=== PATIENT | female | born 1945 | race Caucasian/White ===

== ENCOUNTER → 2016-09-10 | Outpatient (CLI) | payer MEDICARE ==
[~2016-09-10] MED LIST: APIX5TAB PO; ASP81CT PO; CTRZ10T PO; DIGO125T PO; DILT240C54 PO; DULO30CA48 PO; FLECANIDE PO; HYDR-3720 PO; HYDR-3812 PO; LOSA100T7 PO; MAGN250T7 PO; MTP25TSR PO; MULT1CAP27 PO; PARO10TA21 PO; TRAM-42 PO; VIT1CAPS9 PO; WARF7.5T PO; WRF5T PO
--- NOTE | 2016-09-10 18:45 | ECHOCARDIOGRAPHY REPORT ---
DATE OF SERVICE: 09/10/2016 TWO-DIMENSIONAL ECHOCARDIOGRAM REPORT REFERRING PHYSICIAN: Katlyn Darby MD MEASUREMENT: LVID end-diastolic 5.0, IVS thickness 1.3, LVPW thickness 1.3, left atrial diameter 4.7, ejection fraction 60%. FINDINGS: 1. Technical quality is good. 2. The left ventricle is normal in size with mild to moderate left ventricular hypertrophy noted diffusely, more pronounced at the base of the septum giving the septum a sigmoid shape. Systolic function appeared to be normal, estimated ejection fraction 60%. Diastolic dysfunction is suggested by Doppler. 3. The left atrium is dilated. No clot or thrombus were seen within the left atrium. 4. The right atrium and right ventricle are dilated. No clot or thrombus were seen within the right side. 5. Mitral valve is normal in morphology with mild to moderate mitral regurgitation noted by color Doppler flow. No mitral valve prolapse. No mitral valve stenosis. 6. Aortic valve is trileaflet with normal opening and closing pattern. No significant aortic valve stenosis was noted. Moderate aortic regurgitation noted by color Doppler flow. 7. Tricuspid valve is normal in morphology with mild to moderate tricuspid regurgitation noted by color Doppler flow. Doppler across the tricuspid valve estimated pulmonary artery pressure of 39 plus right atrial pressure. 8. Pulmonic valve is functioning normally. 9. No pericardial effusion. CONCLUSION: 1. Mild to moderate left ventricular hypertrophy noted diffusely, more pronounced at the base of the septum giving the septum a sigmoid shape. Systolic function appeared to be normal, estimated ejection fraction 60%, diastolic dysfunction is suggested by Doppler. 2. Left atrial dilatation with dilated right heart chambers. 3. Pulmonary hypertension with estimated pulmonary artery pressure of 45 mmHg. 4. Mild to moderate mitral regurgitation, moderate aortic regurgitation, mild to moderate tricuspid regurgitation. Job ID: [id number] DocumentID: [id number] Dictated Date: 09/10/2016 12:29:40 Treatment Supervisor Date: 09/10/2016 13:06:17 Dictated By: DALJIT DOTY MD
== END ==
LOC: CARD 09:53
PROVIDERS: ATTEND Internal Medicine Cardiovascular Disease
DX: I48.91 Unspecified atrial fibrillation (principal); I10 Essential (primary) hypertension; E78.2 Mixed hyperlipidemia; G47.33 Obstructive sleep apnea (adult) (pediatric); I27.2 Other secondary pulmonary hypertension; I08.3 Combined rheumatic disorders of mitral, aortic and tricuspid valves
CPT/HCPCS: 93306

== ENCOUNTER → 2018-07-20 | Outpatient (CLI) | payer MEDICARE ==
[~2018-07-20] VITALS: Ht 165.1 cm; Wt 95.7 kg
[~2018-07-20] MED LIST changes: +ACHD5005 PO; -HYDR-3812 PO; +OCUVITE SOFTGE1 EACH PO; +REGADENOSON 0.4 MG/5 ML SYR (LEXISCAN) IV ONE; -VIT1CAPS9 PO
[2018-07-20] MEDS: CATHETER FLUSH 10 ML SYR IV PRN ×2 (08:06→09:36)
[2018-07-20 09:34] VITALS: BP 171/104
--- NOTE | 2018-07-20 15:17 | STRESS TEST ---
DATE OF SERVICE: 07/20/2018 LEXISCAN MYOVIEW STRESS TEST REPORT REFERRING PHYSICIAN: Dr. Katlyn Darby. Baseline heart rate is 75, baseline blood pressure 171/104, baseline EKG is atrial fibrillation with no ischemic changes. In summary, the patient was injected with 10.83 mCi of technetium-99 Myoview and the resting images were obtained. Then, the patient received 0.4 mg of Lexiscan, followed by 29.5 mCi of technetium-99 Myoview. Throughout the test, there were no EKG changes. The resting and stress images were reviewed and compared in the short axis, horizontal long axis, and vertical long axis views. Review of the images showed reversible ischemia involving the whole anterior wall and anterolateral wall. SSS is 16, SDS 12, TID value 1.08. On the gated images, the left ventricle appeared to be in normal size with normal contractility. Calculated ejection fraction 56%, gated images are unreliable due to underlying atrial fibrillation. IN CONCLUSION: 1. The patient tolerated Lexiscan well. 2. Reversible ischemia involving the whole anterior wall and anterolateral wall. 3. Normal left ventricular size, gated images are unreliable due to atrial fibrillation. 4. Calculated ejection fraction 56%. Job ID: [id number] DocumentID: [id number] Dictated Date: 07/20/2018 15:08:56 Psychosocial Rehabilitation Counselor Date: 07/20/2018 15:16:41 Dictated By: DALJIT DOTY MD
== END ==
LOC: CARD 07:37
PROVIDERS: ATTEND Physician Assistant
DX: I48.91 Unspecified atrial fibrillation (principal); I35.1 Nonrheumatic aortic (valve) insufficiency; I10 Essential (primary) hypertension; E78.2 Mixed hyperlipidemia
CPT/HCPCS: 78452; 93017

== ENCOUNTER 2018-08-10 07:59 | Day surgery (SDC) | payer MEDICARE ==
[2018-08-10] VITALS (10 sets, daily range): BP systolic 125–148; BP diastolic 70–96
[~2018-08-10] VITALS: Ht 165.1 cm; Wt 90.7 kg
[~2018-08-10 07:59] MED LIST changes: -REGADENOSON 0.4 MG/5 ML SYR (LEXISCAN) IV ONE
[2018-08-10] MEDS ORDERED: LIDOCAINE 1% INJ 20 ML 20 ML VIAL ONE (08:03)
[2018-08-10] MEDS ORDERED: NS IV 1000 ML 1,000 ML ONE (08:03)
[2018-08-10] MEDS ORDERED: HEParin (CATH LAB) 2,000 ML IV ONE (08:03)
[2018-08-10] MEDS ORDERED: NS IV 1000 ML 1,000 ML IV SCH ×2 (08:10→10:52)
[2018-08-10 08:38] LABS: HEMOGLOBIN 14.6 G/DL (11.5-16.0); MEAN PLATELET VOLUME 11.8 FL (7.4-10.4); RED CELL DISTRIBUTION WIDTH 14.5 % (10.0-14.5); WHITE BLOOD COUNT 6.8 10^3/uL (4.3-11.0)
[2018-08-10 08:49] LABS: PROTHROMBIN TIME PATIENT 13.8 SEC (12.2-14.7)
--- NOTE | 2018-08-10 08:49 | Diagnostic Imaging Report ---
INDICATION: Coronary artery disease. COMPARISON: 12/11/2011. FINDINGS: A single frontal radiographic view of the chest was obtained and demonstrates persistent moderate to marked cardiomegaly. The pulmonary vasculature, however, is within normal limits. The lungs are clear. There is no focal consolidation, large effusion, or pneumothorax. The bony structures show no gross acute abnormalities. IMPRESSION: Stable cardiomegaly with no evidence of failure or focal infiltrate. Dictated by: Dictated on workstation # [id number]
[2018-08-10 08:57] LABS: ALANINE AMINOTRANSFERASE 35 U/L (0-55); ALBUMIN 4.1 GM/DL (3.2-4.5); ALKALINE PHOSPHATASE 93 U/L (40-136); BILIRUBIN,TOTAL 0.8 MG/DL (0.1-1.0); BUN/CREATININE RATIO 18; CALCIUM 9.8 MG/DL (8.5-10.1); CARBON DIOXIDE 21 MMOL/L (21-32); CHLORIDE 108 MMOL/L (98-107); CREATININE SERUM 0.77 MG/DL (0.60-1.30); GFR ESTIMATED > 60; GLUCOSE 114 MG/DL (70-105); POTASSIUM 5.1 MMOL/L (3.6-5.0); SODIUM 142 MMOL/L (135-145); TOTAL PROTEIN 8.3 GM/DL (6.4-8.2)
[2018-08-10] MEDS ORDERED: DILT360T11 PO (09:27)
[2018-08-10] MEDS ORDERED: FURO40TA4 PO (09:28)
[2018-08-10] MEDS ORDERED: POTA10TA36 PO (09:28)
[2018-08-10] MEDS ORDERED: MAGN400T29 PO (09:29)
--- NOTE | 2018-08-10 09:30 | NUR ---
Patient brought in a medication list. Stated the last time medications where taken.
[2018-08-10] MEDS ORDERED: fentaNYL INJECTION 100 MCG/2 ML AMP ONE (09:57)
[2018-08-10] MEDS ORDERED: HEParin 1000 UNIT/ML (10ML VIAL) FOR BOLUS ONE (09:57)
[2018-08-10] MEDS ORDERED: MIDAZOLAM 5 MG/5 ML (VERSED) VIAL ONE (09:57)
--- NOTE | 2018-08-10 10:22 | Cardiac Procedure Note-CS/ASA ---
Pre-Procedure Note Pre-Op Procedure Note H&P Reviewed The H&P was reviewed, patient examined and no changes noted. Date H&P Reviewed: August 10, 2018 Time H&P Reviewed: 10:22 Conscious Sedation Pre-Proced Time 10:22 ASA Score 3 For ASA 3 and 4: Consider anesthesia and medical clearance. Also, for patients with a history of failed moderate sedation consider anesthesia. Airway Lungs Heart ASA score ASA 1: a normal healthy patient ASA 2: a patient with a mild systemic disease (mid diabetes, controlled hypertension, obesity x ASA 3: a patient with a severe systemic disease that limits activity (angina , COPD, prior Myocardial infarction) ASA 4: a patient with an incapacitating disease that is a constant threat to life (CHF, renal failure) ASA 5: a moribund patient not expected to survive 24 hrs. (ruptured aneurysm) ASA 6: a declared brain- patient whose organs are being harvested. For emergent operations, add the letter E after the classification Mallampati Classification Grade 3 Sedation Plan Analgesia, Amnesia, Plan communicated to team members, Discussed options with patient/fam, Discussed risks with patient/fam The patient is an appropriate candidate to undergo the planned procedure, sedation, and anesthesia. The patient immediately re-assessed prior to indication. DALJIT DOTY MD August 10, 2018 10:22
--- NOTE | 2018-08-10 10:52 | Cardiac Cath Report ---
Cardiac Cath Report Physician (s)/Media Relations Manager (s) Physician DALJIT DOTY MD Pre-Procedure Diagnosis Pre-Procedure Diagnosis: coronary artery disease Post-Procedure Note Procedure Start Date: August 10, 2018 Name of Procedure: Left heart catheterization Aortic arch angiogram Findings/Procedure Note PROCEDURE NOTE: 72 years old lady with history of coronary artery disease, paroxysmal atrial fibrillation, had an abnormal stress test with anterior wall ischemia, scheduled for cardiac catheterization possible PTCA. During the procedure she was noted to have heavily calcified aortic arch and tortuous aortic arch, aortic arch angiogram was done. After explaining the procedure to the patient, all pros and cons were explained , all questions were answered. The patient signed the consent and then she was placed on the cardiac catheterization laboratory. Groin was prepped SL fashion local anesthesia was used. Sheath placed in the right femoral artery. Stephie right and left catheter were used to access the coronary system. Pigtail was used to access the left ventricular cavity. Left ventriculogram was done Aortic arch angiogram was done At the end of the procedure the sheath was removed. Closure device was used FINDINGS: Hemodynamics LV 143/11, end-diastolic pressure of 11 Aorta 141/70 mean of 101 ANATOMY: Left Main is free of obstructive disease Left Anterior Descending as mild disease nonobstructive disease Left Circumflex has mild disease nonobstructive disease Right Coronory Artery is dominant artery with mild disease nonobstructive disease LV Gram was done showing normal left ventricular size with normal contact 50, normal systolic function, normal aortic root, Ejection fraction 60 percent Aorta evaluation done with aortic arch angiogram which showed calcification the aortic arch, tortuous right subclavian artery, mild atherosclerotic disease with calcification, no dissection or aneurysm, hypertensive changes CONCLUSION: 1. Mild coronary artery disease nonobstructive disease 2. Normal left ventricular size and systolic function estimated ejection fraction 60 percent 3. Prominent aorta with calcification, no dissection or aneurysm. DISCUSSION AND RECOMMENDATION: No intervention is needed, continue with medical therapy Anesthesia Type: Conscious Sedation Estimated blood loss (mL): 25 ml Contrast Amount: 65 ml Total Radiation Dose: 320 mGy Post-Procedure Diagnosis Post-operative diagnosis: Coronary artery disease Chronic atrial fibrillation Hypertension Hyperlipidemia DALJIT DOTY MD August 10, 2018 10:52
--- NOTE | 2018-08-10 10:54 | Discharge Inst-Post CATH ---
Discharge Inst-CATH/EP Post Cardiac Cath/EP D/C Inst Follow Up/Plan Appointment with Dr. DOTY's office in 2-4 weeks <b>CARDIAC CATH/EP PROCEDURE DISCHARGE INSTRUCTIONS</b> Cardiac Rehab Please be expecting a follow up call from Cardiac Rehab within in one week. ACTIVITY * Go Home directly and rest. * Limit activity of the leg (or wrist if it was used) for 7 days including aerobics, swimming, jogging, bicycling, etc. * Restrict stair-climbing for 7 days if possible, if not, climb up with your non -cath leg, then bring together on the same step. * Avoid lifting, pushing, pulling or excessive movement of the affected extremity for 7 days. * Customary sexual activity may be resumed after 2 days-use caution not to use a position that strains or causes pain to the affected extremity. * No driving for 24 hours. * NO SMOKING. * Avoid straining for bowel movements for 7 days. * Gentle walking on level ground is allowed. * Returning to work will depend on the type of procedure and the results. Your doctor will discuss this with you. CALL YOUR DOCTOR FOR ANY OF THE FOLLOWING: *If bleeding from the puncture site occurs- Apply gentle pressure to site with clean cloth and call your doctor or EMS. * If a knot or lump forms under the skin, increases in size, or causes pain. * If bruising appears to be worsening or moving further down your leg instead of disappearing. * Temperature above 101 F. CARE OF YOUR GROIN INCISION; * Bruising or purple discoloration of the skin near the puncture site is common. * You may shower only, no bathtub bathing for 5 days. Be careful to avoid slipping as your leg may feel stiff. * If a closure device was used on your femoral artery, please see the attached guide regarding care of the device and your leg. * Leave dressing on FOR 24 hours. CARE OF YOUR WRIST INCISION; * Bruising or purple discoloration of the skin near the puncture site is common. * You may shower. * DO NOT submerge wrist. * Leave dressing on FOR 24 hours. DALJIT DOTY MD August 10, 2018 10:54
[2018-08-10] MEDS ORDERED: PATIENT MAY USE OWN MEDS, ALL PO SCH (11:00)
== END 2018-08-10 15:30 | disposition home or self-care (01) ==
LOC: CARD 07:59 → SDC 11:05 → CATH 15:30
PROVIDERS: ATTEND Internal Medicine Cardiovascular Disease
DX: I25.10 Atherosclerotic heart disease of native coronary artery without angina pectoris (principal); I48.2 Chronic atrial fibrillation; I10 Essential (primary) hypertension; E78.2 Mixed hyperlipidemia; M79.7 Fibromyalgia; I08.3 Combined rheumatic disorders of mitral, aortic and tricuspid valves; E11.40 Type 2 diabetes mellitus with diabetic neuropathy, unspecified; G47.33 Obstructive sleep apnea (adult) (pediatric); Z96.653 Presence of artificial knee joint, bilateral; Q21.1 Atrial septal defect; J44.9 Chronic obstructive pulmonary disease, unspecified; I65.23 Occlusion and stenosis of bilateral carotid arteries; I27.20 Pulmonary hypertension, unspecified; Z79.899 Other long term (current) drug therapy; Z79.01 Long term (current) use of anticoagulants
CPT/HCPCS: 36221; 36415; 71045; 80053; 85027; 85610; 85730; 87081; 93458

== ENCOUNTER → 2019-02-09 | Outpatient (CLI) | payer MEDICARE ==
[~2019-02-09] MED LIST changes: +DILT360T11 PO; -DULO30CA48 PO; +DULO30CA49 PO; +FURO40TA4 PO; +MAGN400T29 PO; +POTA10TA36 PO
== END ==
LOC: CARD 13:49
PROVIDERS: ATTEND Physician Assistant
DX: I08.3 Combined rheumatic disorders of mitral, aortic and tricuspid valves (principal); I48.91 Unspecified atrial fibrillation; I10 Essential (primary) hypertension; E78.2 Mixed hyperlipidemia; E11.9 Type 2 diabetes mellitus without complications; G47.33 Obstructive sleep apnea (adult) (pediatric)
CPT/HCPCS: 93306

== ENCOUNTER → 2020-05-13 | Outpatient (CLI) | payer MEDICARE | LOC: CARD 10:00 | PROVIDERS: ATTEND Physician Assistant | DX: I35.1 Nonrheumatic aortic (valve) insufficiency (principal) | CPT/HCPCS: 93306 ==

== ENCOUNTER → 2020-06-12 | Outpatient (CLI) | payer MEDICARE ==
[~2020-06-12] VITALS: Ht 162 cm; Wt 91.0 kg
[~2020-06-12] MED LIST changes: +CHOL20002 PO; +CITA20TA9 PO; +DIGO125T3 PO; +DOCU100T7 PO; +FLUT9.9S NS; +FURO20TA4 PO; +LORA10TA76 PO; +LOSA100T57 PO; +MAGN400T39 PO; +REGADENOSON 0.4 MG/5 ML SYR (LEXISCAN) IV ONE; +TRAM50TA3 PO; +VIT-31 PO
[2020-06-12] MEDS: CATHETER FLUSH 10 ML SYR IV PRN ×2 (12:03→13:24)
[2020-06-12 13:21] VITALS: BP 143/80
--- NOTE | 2020-06-12 15:02 | Cardiology Stress Test Report ---
Stress Test Report Date of Procedure/Referring: Date of Procedure: Jun 12, 2020 PCP Daljit Salinas MD Admitting Physician Katlyn Darby MD Indications: Dyspnea Baseline Heart Rate: 82 Baseline Blood Pressure: Blood Pressure Systolic: 143 Blood Pressure Diastolic: 80 Baseline Vitals Vital Signs Date Time Temp Pulse Resp B/P (MAP) Pulse Ox O2 Delivery O2 Flow Rate FiO2 06/12/20 13:21 82 16 143/80 (101) 98 Room Air Baseline EKG: Baseline EKG: NSR Summary After explaining the procedure to the patient, she signed a consent and then brought to the stress nuclear laboratory. Patient received 0.4 mg Lexiscan for stress test, ECG, heart rate and blood pressure were monitored continuously. Resting and stress dose of radio tracer were injected, imaging was acquired and reviewed in short axis, horizontal long axis and vertical long axis views. TID: 0.92 SSS: 18 SDS: 7 EF: 54 1. Patient tolerated Lexiscan well 2. Baseline atrial fibrillation persisted throughout test 3. Nondiagnostic EKG changes with persistent T-wave inversion noted during test 4. Breast attenuation with reversible ischemia involving the whole anterior wall and anterolateral wall 5. Normal left ventricular size, EF 54 percent, gated images are unreliable due to underlying atrial fibrillation DALJIT SALINAS MD Jun 12, 2020 15:02
== END ==
LOC: CARD 11:36
PROVIDERS: ATTEND Internal Medicine Cardiovascular Disease
DX: R06.09 Other forms of dyspnea (principal)
CPT/HCPCS: 78452; 93017; A9502

== ENCOUNTER 2020-06-14 10:00 | Day surgery (SDC) | payer MEDICARE ==
[~2020-06-14] VITALS: Ht 162.6 cm; Wt 92.9 kg
[2020-06-14] VITALS (12 sets, daily range): BP systolic 123–168; BP diastolic 69–77
--- NOTE | 2020-06-14 08:23 | Diagnostic Imaging Report ---
INDICATION: Coronary artery disease. Frontal chest obtained at 0820 a.m. and compared to 08/10/2018. There is prominent cardiomegaly. There is mild central vascular prominence without tia edema or consolidation. There is no pneumothorax or pleural fluid. IMPRESSION: Prominent cardiomegaly with no acute process in the chest. Dictated by: Dictated on workstation # [id number]
[2020-06-14 08:27] LABS: BILIRUBIN,URINE NEGATIVE (NEGATIVE); CLARITY,URINE CLEAR; COLOR,URINE YELLOW; GLUCOSE, URINE (UA) NEGATIVE (NEGATIVE); KETONES,URINE NEGATIVE (NEGATIVE); LEUKOCYTE ESTERASE ,URINE NEGATIVE (NEGATIVE); NITRITE,URINE NEGATIVE (NEGATIVE); PROTEIN,URINE NEGATIVE (NEGATIVE)
[2020-06-14 08:44] LABS: INR 1.1 (0.8-1.4)
[2020-06-14 08:48] LABS: ALANINE AMINOTRANSFERASE 20 U/L (0-55); ALBUMIN 3.9 GM/DL (3.2-4.5); ALKALINE PHOSPHATASE 79 U/L (40-136); BILIRUBIN,TOTAL 0.8 MG/DL (0.1-1.0); BUN/CREATININE RATIO 20; CARBON DIOXIDE 25 MMOL/L (21-32); CHLORIDE 107 MMOL/L (98-107); CHOLESTEROL 121 MG/DL (< 200); CREATININE SERUM 0.81 MG/DL (0.60-1.30); GFR ESTIMATED > 60; GLUCOSE 113 MG/DL (70-105); HDL CHOLESTEROL 52 MG/DL (40-60); POTASSIUM 4.4 MMOL/L (3.6-5.0); SODIUM 142 MMOL/L (135-145); TOTAL PROTEIN 7.2 GM/DL (6.4-8.2); TRIGLYCERIDES 53 MG/DL (<150); VLDL CHOLESTEROL 11 MG/DL (5-40)
[2020-06-14 08:51] LABS: BACTERIA,URINE TRACE /HPF; SQUAMOUS EPITHELIAL CELL,UR RARE /HPF; WBC,URINE 0-2 /HPF
[2020-06-14 09:01] LABS: HEMOGLOBIN 13.1 g/dL (11.5-16.0); MEAN PLATELET VOLUME 11.2 fL (9.0-12.2); WHITE BLOOD COUNT 5.5 10^3/uL (4.3-11.0)
[~2020-06-14 10:00] MED LIST changes: +HEParin (CATH LAB) 2,000 ML IV ONE; +LIDOCAINE 1% INJ 20 ML 20 ML VIAL ONE; +NS IV 1000 ML 1,000 ML IV SCH; +NS IV 1000 ML 1,000 ML ONE; -REGADENOSON 0.4 MG/5 ML SYR (LEXISCAN) IV ONE
[2020-06-14] MEDS ORDERED: fentaNYL INJ 100 MCG/2 ML AMP ONE (11:46)
[2020-06-14] MEDS ORDERED: MIDAZOLAM 5 MG/5 ML (VERSED) VIAL ONE (11:46)
[2020-06-14] MEDS ORDERED: HEParin (CATH LAB) 1,000 ML IV ONE (12:12)
--- NOTE | 2020-06-14 13:19 | Discharge Inst-Post CATH ---
Discharge Inst-CATH/EP Problems Reviewed?: Yes Post Cardiac Cath/EP D/C Inst Follow Up/Plan Appointment with Dr. Murphy's office in 2-4 weeks <b>CARDIAC CATH/EP PROCEDURE DISCHARGE INSTRUCTIONS</b> ACTIVITY * Go Home directly and rest. * Limit activity of the leg (or wrist if it was used) for 7 days including aerobics, swimming, jogging, bicycling, etc. * Restrict stair-climbing for 7 days if possible, if not, climb up with your non-cath leg, then bring together on the same step. * Avoid lifting, pushing, pulling or excessive movement of the affected extremity for 7 days. * Customary sexual activity may be resumed after 2 days-use caution not to use a position that strains or causes pain to the affected extremity. * No driving for 24 hours. * NO SMOKING. * Avoid straining for bowel movements for 7 days. * Gentle walking on level ground is allowed. * Returning to work will depend on the type of procedure and the results. Your doctor will discuss this with you. CALL YOUR DOCTOR FOR ANY OF THE FOLLOWING: *If bleeding from the puncture site occurs- Apply gentle pressure to site with clean cloth and call your doctor or EMS. * If a knot or lump forms under the skin, increases in size, or causes pain. * If bruising appears to be worsening or moving further down your leg instead of disappearing. * Temperature above 101 F. CARE OF YOUR GROIN INCISION; * Bruising or purple discoloration of the skin near the puncture site is common. * You may shower only, no bathtub bathing for 5 days. Be careful to avoid slipping as your leg may feel stiff. * If a closure device was used on your femoral artery, please see the attached guide regarding care of the device and your leg. * Leave dressing on FOR 24 hours. CARE OF YOUR WRIST INCISION; * Bruising or purple discoloration of the skin near the puncture site is common. * You may shower. * DO NOT submerge wrist. * Leave dressing on FOR 24 hours. DALJIT DOTY MD Jun 14, 2020 1:18 pm
[2020-06-14] MEDS ORDERED: PATIENT MAY USE OWN MEDS, ALL PO SCH (13:30)
[2020-06-14] MEDS ORDERED: NS IV 1000 ML 1,000 ML IV SCH (13:30)
--- NOTE | 2020-06-14 13:34 | Cardiac Cath Report ---
Cardiac Cath Report Physician (s)/[employer] [employer] Supervisor (s) Physician DALJIT DOTY MD Pre-Procedure Diagnosis Pre-Procedure Diagnosis: coronary artery disease Post-Procedure Note Procedure Start Date: Jun 14, 2020 Name of Procedure: Left heart catheterization Right heart catheterization Findings/Procedure Note PROCEDURE NOTE: 74-year-old lady with history of hypertension, shortness of breath, mitral regurgitation, pulmonary hypertension, scheduled for right and left heart catheterization possible PTCA. After explaining the procedure to the patient, all pros and cons were explained, all questions were answered. The patient signed the consent and then she was placed on the cardiac catheterization laboratory. Groin was prepped SL fashion local anesthesia was used. Sheath placed in the right femoral artery and the right femoral vein. [place] catheter was advanced through the right atrium to the right ventricle and main pulmonary artery and advanced to the wedge position, multiple pressure reading were measured at each chamber, oxygen saturation sample was obtained. After placement of the balloon tip catheter at the wedge position we did simultaneous reading with the pigtail in the left ventricle, evaluated cardiac output by thermodilution and Mk equation. Stephie right and left catheter were used to access the coronary system. Pigtail was used to access the left ventricular cavity. Left ventriculogram was done At the end of the procedure the sheath was removed. Closure device was deployed FINDINGS: Hemodynamics LV 145/11, end-diastolic pressure of 11 Aorta 165/70 mean of 104 Pulmonary capillary wedge pressure mean of 19, A wave 24, V wave 28 PA 32/12/20 RV 25/1/9 RA 10 Oxygen saturation HRA 72.2 LRA 73.2 RV 72.4 PA 72.9 AO 94.7 Thermodilution cardiac output 4.07, cardiac index 2.06 Mk cardiac output 4.82, cardiac index 2.44 Heart rate 80 Resistance results biometric units PVR 17, SVR 1229, PVRI 33, [id number], TPR 332, TVR 1412, TPRI 655, TVRI 2784, PVR/SVR 0.01, TPR/TVR 0.24 Resistance results body wood unit PVR 0.21, SVR 15.37, PVRI 0.41, SVRI 30.30, TPR 4.15, TVR 17.65, TPRI 8.19, TVRI 34.80, PVR/SVR 0.01, TPR/TVR 0.24 QP 4.82, QS 4.82 ANATOMY: Left Main is free of obstructive disease Left Anterior Descending has mild disease nonobstructive disease Left Circumflex has mild disease nonobstructive disease Right Coronory Artery has mild disease nonobstructive disease LV Gram was done showing left ventricular hypertrophy with normal systolic function estimated ejection fraction 60 percent CONCLUSION: 1. Normal coronary system, nonobstructive disease 2. Normal left ventricular size with left ventricular hypertrophy, EF 60 percent 3. Hemodynamics described above Anesthesia Type: Conscious Sedation Estimated blood loss (mL): 25 ml Contrast Amount: 55 ml Total Radiation Dose: 419 mGy Post-Procedure Diagnosis Post-operative diagnosis: Coronary artery disease Mitral regurgitation Hypertension Hyperlipidemia DALJIT DOTY MD Jun 14, 2020 1:34 pm
== END 2020-06-14 18:25 ==
LOC: CATH 10:00
PROVIDERS: ATTEND Internal Medicine Cardiovascular Disease
DX: I25.10 Atherosclerotic heart disease of native coronary artery without angina pectoris (principal); I10 Essential (primary) hypertension; E78.2 Mixed hyperlipidemia; G47.33 Obstructive sleep apnea (adult) (pediatric); I08.0 Rheumatic disorders of both mitral and aortic valves; J44.9 Chronic obstructive pulmonary disease, unspecified; I65.23 Occlusion and stenosis of bilateral carotid arteries; I48.19 Other persistent atrial fibrillation; Q21.1 Atrial septal defect; Z79.01 Long term (current) use of anticoagulants; Z79.899 Other long term (current) drug therapy; Z88.2 Allergy status to sulfonamides; Z88.1 Allergy status to other antibiotic agents; Z88.5 Allergy status to narcotic agent
CPT/HCPCS: 71045; 80053; 80061; 81000; 85027; 85610; 85730; 87081; 93460; C1760; C1769; C1894; 36415

== ENCOUNTER 2021-05-30 05:28 | Outpatient (RCR) | payer MEDICARE ==
[~2021-05-30] VITALS: Ht 160 cm; Wt 90.8 kg
[~2021-05-30 05:28] MED LIST changes: -HEParin (CATH LAB) 2,000 ML IV ONE; -LIDOCAINE 1% INJ 20 ML 20 ML VIAL ONE; -NS IV 1000 ML 1,000 ML IV SCH; -NS IV 1000 ML 1,000 ML ONE; -POTA10TA36 PO; +POTA10TA37 PO; +SPIR25TA PO
[2021-06-02] MEDS ORDERED: CLIN150C2 PO (13:10)
== END 2021-05-30 13:48 | disposition home or self-care (01) ==
LOC: PREOP 05:28
PROVIDERS: ATTEND Podiatrist Foot & Ankle Surgery
DX: Z01.812 Encounter for preprocedural laboratory examination (principal); M20.41 Other hammer toe(s) (acquired), right foot; Z20.822 Contact with and (suspected) exposure to COVID-19
CPT/HCPCS: 87635

== ENCOUNTER 2021-06-02 09:12 | Day surgery (SDC) | payer MEDICARE ==
[~2021-06-02] VITALS: Ht 160 cm; Wt 90.8 kg
[2021-06-02] VITALS (11 sets, daily range): BP systolic 108–135; BP diastolic 59–89
[2021-06-02] MEDS ORDERED: BUPIVACAINE 0.5% 30 ML (SENSORCAINE) VIAL ONE (09:30)
[2021-06-02] MEDS ORDERED: CLINDAMYCIN 600 MG/50 ML IVPB 50 ML IV ONE (09:30)
[2021-06-02] MEDS ORDERED: LIDOCAINE 1% INJ 50 ML (XYLOCAINE) VIAL ONE (09:30)
[2021-06-02] MEDS: LACTATED RINGERS 1,000 ML IV PRN ×2 (09:43→13:26)
[2021-06-02] MEDS ORDERED: fentaNYL INJ 100 MCG/2 ML AMP ONE (10:21)
[2021-06-02] MEDS ORDERED: LIDOCAINE PF 2% 5 ML (XYLOCAINE) VIAL ONE (10:22)
[2021-06-02] MEDS ORDERED: proPOfol 200 MG/20 ML (DIPRIVAN) VIAL IV ONE (10:22)
[2021-06-02] MEDS ORDERED: ESMOLOL 100 MG/10 ML (BREVIBLOC) VIAL ONE ×2 (11:55→12:21)
[2021-06-02] MEDS ORDERED: SEVOFLURANE (ULTANE) 15 ML INHAL SOLN ONE (12:21)
[2021-06-02] MEDS ORDERED: ONDANSETRON 4 MG/2 ML (SDV) Z0FRAN ONE (12:21)
--- NOTE | 2021-06-02 12:33 | Anesthesia-General Post-Op ---
General Patient Condition Mental Status/LOC: Same as Preop Cardiovascular: Satisfactory Nausea/Vomiting: Absent Respiratory: Satisfactory Pain: Controlled Complications: Absent Post Op Complications Complications None Follow Up Care/Instructions Patient Instructions None needed. Anesthesia/Patient Condition Patient Condition Patient is doing well, no complaints, stable vital signs, no apparent adverse anesthesia problems. No complications reported per nursing. ALFONSO CRAIG CRNA Jun 02, 2021 12:33
[2021-06-02] MEDS ORDERED: MEPERIDINE (DEMEROL) INJ 50 MG/ML IVP ONE (12:45)
[2021-06-02] MEDS ORDERED: morphine INJ 10 MG/ML 1ML (SYR OR VIAL) IVP ONE (12:45)
[2021-06-02] MEDS ORDERED: fentaNYL INJ 100 MCG/2 ML AMP IVP ONE (12:45)
[2021-06-02] MEDS ORDERED: ONDANSETRON 4 MG/2 ML (SDV) Z0FRAN IVP PRN (12:45)
--- NOTE | 2021-06-02 13:04 | Progress Note-Pre Operative ---
Pre-Operative Progress Note H&P Reviewed The H&P was reviewed, patient examined and no changes noted. Date Seen by Provider: Jun 02, 2021 Time Seen by Provider: 10:45 Date H&P Reviewed: Jun 02, 2021 Time H&P Reviewed: 10:45 Pre-Operative Diagnosis: Hammertoes 2, 3, 4, 5, right LETICIA COOK DPCodie Jun 02, 2021 13:04
--- NOTE | 2021-06-02 13:07 | Progress Note-Post Operative ---
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 Anesthesia Type General Estimated Blood Loss Estimated blood loss (mL): Minimal Specimens/Packing Specimens Removed skin between right 4th and 5th toes LETICIA COOK DPM Jun 02, 2021 13:07
[2021-06-02] MEDS ORDERED: CLIN150C2 PO (13:10)
[2021-06-02] MEDS ORDERED: morphine INJ 4 MG/ML 1 ML (VIAL/SYRINGE) IVP PRN (13:15)
[2021-06-02] MEDS ORDERED: LACTATED RINGERS 1,000 ML IV SCH (13:15)
--- NOTE | 2021-06-02 14:45 | Physical Therapy Ortho Eval ---
PT Orthopedic Evaluation Type of Surgery R hammer toe Prior Level of Function Current Living Status: Spouse Locomotion (Upon Admit): Independent Established Durable Medical Eq: Front Wheeled Walker Subjective Subjective Patient s/p hammer toe surgery and is laying in bed. Patient agrees to ambulated and practice steps before discharge. Entry Into Home: Stairs With Railing Steps Into Home: 5 Steps Accessories: Railing Present Motor Control Motor Control: Motor Control WNL ROM ROM: WFL Strength Strength: WFL Transfer SCALE: Activities may be completed with or without assistive devices. 4-Ysltvanwac-ovgwjna completes the activity by him/herself with no assistance from a helper. 5-Set-up or Clean-up Assistance-helper sets up or cleans up; patient completes activity. [place] assists only prior to or following the activity. 4-Supervision or Touching Assistance-helper provides verbal cues and/or touching/steadying and/or contact guard assistance as patient completes activity. Assistance may be provided throughout the activity or intermittently. 3-Partial/Moderate Assistance-helper does LESS THAN HALF the effort. [place] lifts, holds or supports trunk or limbs, but provides less than half the effort. 2-Substantial/Maximal Assistance-helper does MORE THAN HALF the effort. [place] lifts or holds trunk or limbs and provides more than half the effort. 7-Fweabkotw-pfhebn does ALL the effort. Patient does none of the effort to complete the activity. Or, the assistance of 2 or more helpers is required for the patient to complete the activity. If activity was not attempted, code reason: 7-Patient Refused. 9-Not Applicable-not attempted and the patient did not perform the activity before the current illness, exacerbation or injury. 10-Not Attempted due to Environmental Limitations-(lack of equipment, weather restraints, etc.). 88-Not Attempted due to Medical Conditions or Safety Concerns. Transfers (B, C, W/C) (QC): 4 Gait Gait Assistive Device: FWW Right Lower Extremity: Right Weight Bearing Status RLE: Partial Weight Bearing Left Lower Extremity: Left Weight Bearing Status LLE: Full Weight Bearing Gait (QC): 4 Distance (QC): 1=up to 49 ft Distance: 15' Summary/Comments Patient required CGA for ambulation with cues to maintain PWB status on R foot Treatment Rendered Treatment: Gait Train, Step Train Patient performed step training with FWW. Patient has 5 steps at home to get into the house and patient practiced going up 5 steps with therapy today. Patient had difficulty complying with WB status for ambulation and steps. Patient required min assist for balance on steps. Patient educated on stairs with handrail and proper gait sequence on stairs. Assessment/Goals Goal Time Frame: 1 Visit Patient required frequent cues and had difficulty complying with WB status. Plan Treatment Plan: Discharge PT/Family Agrees to Plan: Yes Time Time In: 1407 Time Out: 1430 Total Billed Treatment Time: 23 Billed Treatment Time 1 Visit ROBLow 23 min AURELIO CANALES PT Jun 02, 2021 14:44
--- NOTE | 2021-06-02 15:41 | Diagnostic Imaging Report ---
INDICATION: Status post hammertoe surgery. COMPARISON: None FINDINGS: 2 radiographic views of the right foot were obtained. Post osteotomy changes to the 2nd through 4th toes are identified. Justin wires traverse the 2nd through 4th toes. No unexpected radiopaque foreign bodies are seen. No other acute osseous abnormality is identified. Remaining joint spaces are intact. IMPRESSION: 1. Postsurgical changes to the right foot. No unexpected radiopaque foreign body. Dictated by: Dictated on workstation # [id number]
--- NOTE | 2021-06-02 21:09 | OPERATIVE REPORT ---
DATE OF SERVICE: 06/02/2021 SURGEON: Leeann So DPM. PREOPERATIVE DIAGNOSIS: Hammer digit syndrome, right 2, 3, 4 and 5 digits. POSTOPERATIVE DIAGNOSES: 1. Hammer digit syndrome, right 2, 3, 4 and 5 digits. 2. Hypertrophic skin lesion between the fourth and fifth digits, right foot. PROCEDURES: 1. Arthrodesis of the proximal interphalangeal joint and reduction of hammertoe, 2, 3, 4 and 5, right foot. 2. Arthroplasty, right fifth toe. 3. Partial syndactylization of the right fourth and fifth digits. WOUND CLASS: Clean. ANESTHESIA: General. HEMOSTASIS: Pneumatic thigh tourniquet at 300 mmHg. INDICATIONS: This 75-year-old female presents complaining of a painful lesion between the fourth and fifth toes of the right foot. Also complaining about painful hammertoes of the right second, third, fourth and fifth digits. Risks and complications were discussed at length and the patient is agreeable to surgical intervention after risks and complications were discussed. No guarantees were extended to the patient and she is willing to proceed. DESCRIPTION OF PROCEDURE: The patient was brought back to the operating table, placed in secure supine position. General anesthetic was then induced. An appropriate timeout was performed. The right foot was anesthetized utilizing 7 mL of 1:1 mixture of 1% Xylocaine, 0.5% Marcaine injected in a digital block to the 2, 3, 4 and 5 digits. The right foot was then prepped and draped in normal sterile manner. The right foot was then elevated, allowed to exsanguinate after which the thigh tourniquet was inflated to 300 mmHg. Attention was then directed to the dorsal aspect of the right second, third, fourth and fifth digits, where an incision was made from the metatarsophalangeal joint to the distal interphalangeal joint. The incisions were deepened in the same plane with great care to identify and retract all vital neurovascular structures. All necessary blood vessels were cauterized as encountered. The incisions were deepened down to the extensor tendon where a Z slide lengthening was performed overlying the proximal interphalangeal joint of the second, third, fourth and fifth digits. The extensor ventura was released at the metatarsophalangeal joint, after which a dorsal capsulorrhaphy was performed to the second, third, fourth and fifth digits. This allowed the proximal phalanx to come down into more rectus alignment for each of the toes. Also, I observed that the lesser toes second, third and fourth especially head and medial deviation, so the medial collateral ligaments were released at the metatarsophalangeal joint. The wounds were flushed with copious amounts of normal saline. Next, utilizing a power sagittal saw and a power bur, the head of the second, third and fourth proximal phalanx was fashioned into a peg and a hole was created at the base of the middle phalanx for the second, third and fourth digits. This is in preparation for the peg-in-hole type arthrodesis, which was secured in rectus alignment utilizing a 0.054 smooth K-wire to the second, third and fourth digits. Excellent alignment was appreciated at this time. The wounds were flushed with copious amounts of normal saline. A K-wire cap was applied to the distal end of the wires. Attention was then directed to the right fifth toe where a previous arthroplasty was apparently done. The incision through the scar tissue was down to the proximal phalangeal joint where a rongeur was utilized to reduce the medial eminence at the distal aspect of the proximal phalanx. The area was flushed after which the extensor tendon was repaired in a lengthened position, but the distal aspect of toe was rotated in a valgus orientation to have the nail plate facing more dorsally than laterally as it was preoperatively. The remaining extensor tendons were also repaired in a lengthened position with 0 Vicryl, subcutaneous closure was performed to all incisions with 4-0 Vicryl, skin closure with 4-0 Prolene in a horizontal mattress type stitch. Attention was then directed to the fourth webspace where a large hyperkeratotic lesion was noted. The lesion was circumscribed with a marking pen, which was transferred from the medial aspect of the right fifth toe to the lateral aspect of the right fourth toe. This skin was removed and sent for gross and microscopic evaluation. The wound was flushed with copious amounts of normal saline and the skin was reapproximated utilizing 4-0 Prolene in a simple interrupted type stitch creating a partial syndactylization which now excluded the area of previous symptomatology for the patient. Postoperative injection consisted of 14 mL of 0.5% Marcaine injected in a local infusion to the surgical sites. Postoperative dressing consisted of Betadine soaked Adaptic, sterile 4 x 4, sterile Kerlix all secured with a Coban wrap. The patient tolerated the anesthesia and procedure well, was transported from the operating room to the recovery room with vital signs stable and vascular status intact to all digits of the right foot. She is to be partial weightbearing on the right lower extremity. She was given a prescription for Keflex. She has tramadol at home. She will follow up in the office in 10 days' period of time or sooner if necessary. Job ID: [id number] DocumentID: [id number] Dictated Date: 06/02/2021 13:18:01 [employer] Checker Date: 06/02/2021 21:09:11 Dictated By: LOVE TRACEY
== END 2021-06-02 14:50 | disposition home or self-care (01) ==
LOC: SDC 09:12
PROVIDERS: ATTEND Podiatrist Foot & Ankle Surgery
DX: M20.41 Other hammer toe(s) (acquired), right foot (principal); L91.8 Other hypertrophic disorders of the skin; E11.9 Type 2 diabetes mellitus without complications; E66.9 Obesity, unspecified; Z68.35 Body mass index [BMI] 35.0-35.9, adult
CPT/HCPCS: 73620; 82947; 87081

== ENCOUNTER 2021-10-23 16:02 | Emergency (ER) | payer MEDICARE ==
[~2021-10-23] VITALS: Ht 162.5 cm; Wt 86.2 kg
[~2021-10-23 16:02] MED LIST changes: +CLIN150C2 PO
--- NOTE | 2021-10-23 16:15 | ED Fall/Injury ---
General Stated Complaint: FALL Source: patient Exam Limitations: no limitations (TOMY CLAY) History of Present Illness Date Seen by Provider: Oct 23, 2021 Time Seen by Provider: 16:14 Initial Comments Patient is a 75-year-old female who presents the ED with head injury. Patient was walking down the stairs at a building in [place] a [employer] when she felt like she caught the edge of the third to the lower step causing her to fall forward. She lost her balance and twisted landing on the concrete floor hitting the back of her head which resulted in a laceration. No loss of conscious. Currently on Eliquis. She denies of any current neck pain but was placed in c- collar for precautionary secondary to the mechanism of injury. She is now complaining of lower to mid back pain. She denies of any vomiting, visual changes, chest pain, shortness of breath, hip pain or lower extremity pain. She is neurologically intact. Was brought to ED by EMS. (TOMY CLAY) Allergies and Home Medications Allergies Coded Allergies: Sulfa (Sulfonamide Antibiotics) (Unverified Allergy, Mild, 03/18/16) amoxicillin (Unverified Allergy, Mild, 03/18/16) codeine (Unverified Adverse Reaction, Mild, INDIGESTION, 03/18/16) Patient Home Medication List Home Medication List Reviewed: Yes (TOMY CLAY) Apixaban (Eliquis) 5 Mg Tablet, 5 MG PO BID, (Reported) Entered as Reported by: MURALI DUARTE on 06/14/20 0850 Cholecalciferol (Vitamin D3) (Vitamin D3) 50 Mcg Capsule, 50 MCG PO DAILY, (Reported) Entered as Reported by: MURALI DUARTE on 06/14/20 0853 Citalopram Hydrobromide (Citalopram HBr) 20 Mg Tablet, 20 MG PO DAILY, (Repo rted) Entered as Reported by: MURALI DUARTE on 06/14/20 0850 Clindamycin HCl (Cleocin HCl) 150 Mg Capsule, 1 CAP PO QID Prescribed by: LETICIA COOK on 06/02/21 1310 Digoxin (Digoxin) 125 Mcg Tablet, 125 MCG PO DAILY, (Reported) Entered as Reported by: MURALI DUARTE on 06/14/20 0850 Diltiazem HCl (Diltiazem ER) 360 Mg Tab.er.24h, 360 MG PO DAILY, (Reported) Entered as Reported by: KASANDRA JAUREGUI on 08/10/18 09 Docusate Sodium (Stool Softener) 100 Mg Tablet, 100-200 MG PO UD PRN for CONSTIPATION-1ST LINE, (Reported) Entered as Reported by: MURALI DUARTE on 06/14/20 0853 Fluticasone Propionate (Flonase Allergy Relief) 9.9 Ml [place].susp, 2 SPRAY NS DAILY PRN for CONGESTION, (Reported) Entered as Reported by: MURALI DUARTE on 06/14/20 0853 Furosemide (Furosemide) 20 Mg Tablet, 20 MG PO DAILY, (Reported) Entered as Reported by: MURALI DUARTE on 06/14/20 0850 Losartan Potassium (Losartan Potassium) 100 Mg Tablet, 100 MG PO DAILY, (Reported) Entered as Reported by: MURALI DUARTE on 06/14/20 0850 Magnesium Oxide (Magnesium) 400 Mg Tablet, 400 MG PO DAILY, (Reported) Entered as Reported by: MURALI DUARTE on 06/14/20 0850 Spironolactone (Aldactone) 25 Mg Tablet, 25 MG PO DAILY, (Reported) Entered as Reported by: BRIANA SALAZAR on 05/29/21 112 Tramadol HCl (Tramadol HCl) 50 Mg Tablet, 50-100 MG PO Q8H PRN for PAIN-MODERATE (5-7), (Reported) Entered as Reported by: MURALI DUARTE on 06/14/20 0850 Vit A/Vit C/Vit E/Zinc/Copper (Eye Multivitamin Tablet) 1 Each Tablet, 1 EACH PO DAILY, (Reported) Entered as Reported by: MURALI DUARTE on 06/14/20 0850 Review of Systems Review of Systems Constitutional: No chills, No diaphoresis Eyes: Denies Blurred Vision, Denies Drainage, Denies Decreased Acuity Ears, Nose, Mouth, Throat: denies ear pain, denies ear discharge Respiratory: No cough, No dyspnea on exertion Cardiovascular: No chest pain, No edema Gastrointestinal: No abdominal pain, No constipation; nausea; No vomiting Psychiatric/Neurological: Other (dizziness) (TOMY CLAY) All Other Systems Reviewed Negative Unless Noted: Yes (TOMY CLAY) Past [place]-Ugzl[place]-Kpddbe Hx Immunizations Up To Date Tetanus Booster (TDap): Less than 5yrs First/Initial COVID19 Vaccinat: 2020 Second COVID19 Vaccination Raymundo: 2020 (TOMY CLAY) Seasonal Allergies Seasonal Allergies: No (TOMY CLAY) Past Medical History Surgeries: Yes (RIGHT FOOT, BILAT TKR, HIATAL HER, R RC/METAL PLATE, LIVER CYST) Gallbladder, Hysterectomy, Tonsillectomy Respiratory: Yes Sleep Apnea Currently Using CPAP: No Currently Using BIPAP: No Cardiac: Yes (HX CARDIAC ABLATION AND CARDIOVERSION, CHFCURRENT ISS WITH HEART VALVE/AFIB) Atrial Fibrillation, Coronary Artery Disease, Hypertension Neurological: Yes Neuropathy Reproductive Disorders: No 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 Sexually Transmitted Disease: No HIV/AIDS: No Genitourinary: Yes UTI-Chronic Gastrointestinal: No Musculoskeletal: Yes Arthritis, Fibromyalgia, Chronic Back Pain Endocrine: Yes (WAS TAKING FARXIGA - OFF DUE TO COST WORKING ON SOMETHING ELSE) HEENT: No Loss of Vision: Bilateral Hearing Impairment: Denies Cancer: No Psychosocial: No Integumentary: No Blood Disorders: No Adverse Reaction/Blood Tranf: No (HAS HAD BLOOD WITH NO REACTION) (TOMY CLAY) Physical Exam Vital Signs Vital Signs - First Documented 10/23/21 10/24/21 16:02 09:04 Temp 37.0 Pulse 79 Resp 16 B/P (MAP) 125/65 (85) Pulse Ox 96 O2 Delivery Room Air O2 Flow Rate 2.00 (NABILA NICKERSON MD) Vital Signs Capillary Refill : (TOMY CLAY) Height, Weight, BMI Height: 5'5.00" Weight: 200lbs. 0.0oz. 90.990680ov; 35.46 BMI Method: General Appearance: WD/WN, no apparent distress HEENT: PERRL/EOMI, normal ENT inspection, TMs normal, pharynx normal Neck: other (c collar in place) Cardiovascular: regular rate, rhythm, no edema, no gallop, no JVD Respiratory: lungs clear, normal breath sounds, other (Right-sided posterior rib tenderness, right-sided lower chest discomfort.) Gastrointestinal: normal bowel sounds, non tender, soft Back: vertebral tenderness (Thoracic and lumbar tenderness mild. Right-sided thoracic paraspinal muscle tenderness and rib tenderness. No lumbar paraspinal muscle tenderness. 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, no motor/sensory deficits, alert, normal mood/affect, oriented x 3 Skin: other (Laceration to the occipital scalp.) (TOMY CLAY) Progress/Results/Core Measures Results/Orders Lab Results Laboratory Tests Test 10/23/21 16:18 10/24/21 07:05 Range/Units White Blood Count 7.8 4.3-11.0 10^3/uL Red Blood Count 3.82 3.80-5.11 10^6/uL Hemoglobin 12.6 11.5-16.0 g/dL Hematocrit 38 35-52 % Mean Corpuscular Volume 99 80-99 fL Mean Corpuscular Hemoglobin 33 25-34 pg Mean Corpuscular Hemoglobin Concent 33 32-36 g/dL Red Cell Distribution Width 13.0 10.0-14.5 % Platelet Count 151 130-400 10^3/uL Mean Platelet Volume 10.3 9.0-12.2 fL Immature Granulocyte % (Auto) 1 % Neutrophils (%) (Auto) 69 42-75 % Lymphocytes (%) (Auto) 16 12-44 % Monocytes (%) (Auto) 11 0-12 % Eosinophils (%) (Auto) 3 0-10 % Basophils (%) (Auto) 1 0-10 % Neutrophils # (Auto) 5.3 1.8-7.8 10^3/uL Lymphocytes # (Auto) 1.2 1.0-4.0 10^3/uL Monocytes # (Auto) 0.9 0.0-1.0 10^3/uL Eosinophils # (Auto) 0.2 0.0-0.3 10^3/uL Basophils # (Auto) 0.1 0.0-0.1 10^3/uL Immature Granulocyte # (Auto) 0.1 0.0-0.1 10^3/uL Prothrombin Time 15.8 H 12.2-14.7 SEC INR Comment 1.2 0.8-1.4 Activated Partial Thromboplast Time 35 24-35 SEC Sodium Level 137 135-145 MMOL/L Potassium Level 4.7 3.6-5.0 MMOL/L Chloride Level 104 98-107 MMOL/L Carbon Dioxide Level 21 21-32 MMOL/L Anion Gap 12 5-14 MMOL/L Blood Urea Nitrogen 31 H 7-18 MG/DL Creatinine 1.30 0.60-1.30 MG/DL Estimat Glomerular Filtration Rate 43 BUN/Creatinine Ratio 24 Glucose Level 120 H 70-105 MG/DL Calcium Level 9.3 8.5-10.1 MG/DL Corrected Calcium 9.4 8.5-10.1 MG/DL Total Bilirubin 0.5 0.1-1.0 MG/DL Aspartate Amino Transf (AST/SGOT) 20 5-34 U/L Alanine Aminotransferase (ALT/SGPT) 14 0-55 U/L Alkaline Phosphatase 81 40-136 U/L Total Protein 7.4 6.4-8.2 GM/DL Albumin 3.9 3.2-4.5 GM/DL Glucometer 113 H 70-110 MG/DL (NABILA NICKERSON MD) My Orders Orders - NABILA NICKERSON MD Morphine Injection (Morphine Injection (10/24/21 06:09) Lactated Ringers (Lr 1000 Ml Iv Solution (10/24/21 06:45) Orphenadrine Inj (Ed Only) (Norflex Inje (10/24/21 06:45) Nieto Cath (10/24/21 06:39) Digoxin Tablet (Lanoxin Tablet) (10/24/21 06:45) Diltiazem Cd 24 Hr Capsule (Cardizem Cd (10/24/21 09:00) Citalopram Tablet (Celexa Tablet) (10/24/21 09:00) Accucheck Stat ONCE (10/24/21 06:58) Citalopram Tablet (Celexa Tablet) (10/24/21 06:58) Diltiazem Cd 24 Hr Capsule (Cardizem Cd (10/24/21 07:01) Morphine Injection (Morphine Injection (10/24/21 08:36) (NABILA NICKERSON MD) Medications Given in ED Current Medications Medications Dose Ordered Sig/Reynaldo Route Start Time Stop Time Status Last Admin Dose Admin Citalopram Hydrobromide 20 mg DAILY ONCE PO 10/24/21 09:00 10/24/21 09:01 DC 10/24/21 07:21 20 MG Diltiazem HCl 300 mg DAILY ONCE PO 10/24/21 09:00 10/24/21 09:01 DC 10/24/21 07:21 300 MG (NABILA NICKERSON MD) Vital Signs/I&O 10/23/21 10/23/21 10/24/21 16:02 16:45 09:04 Temp 37.0 37.0 Pulse 79 79 76 Resp 16 16 12 B/P (MAP) 125/65 (85) 125/65 (85) 112/58 Pulse Ox 96 96 99 O2 Delivery Room Air Room Air Nasal Cannula O2 Flow Rate 2.00 (NABILA NICKERSON MD) Progress Progress Note #1: Time: 06:43 Progress Note I assumed care of this patient from Dr. Argueta at shift change. Apparently patient had a bed secured at [facility] but that bed was lost due to delays with EMS transfer. Based on radiology report, patient has a possible ligamentous injury at T8-T9. This requires MRI and neurosurgical consultation for further evaluation. Neither service is available at [facility] in [place] at this time. I contacted [facility] in [place]. They can accommodate these needs and excepted transfer. I spoke with Dr. Batres in neurosurgery and Dr. Tripathi from the ER. I communicated last dose of Eliquis was taken last night. Patient needs to take her morning cardiac medications including diltiazem ER 300 mg and digoxin 125 mcg. I will administer these meds orally after consulting with Dr. Tripathi. Eliquis will be held in preparation for possible procedural intervention. Losartan will also be held as her systolic blood pressures are in the 100s right now. Patient has not been drinking, IV fluids will be initiated. Morphine 5 mg IV was administered for pain control. She is experiencing significant muscle spasms. Norflex is being administered to treat the spasms. Patient has been updated with the new plan and is agreeable. Nieto catheter has been ordered as a do not want this patient getting up to a commode or raising her pelvis to use a bedpan. Progress Note #2: Time: 06:59 Progress Note EMS will be here after 0800 for transfer. Patient was examined and found to be alert but groggy after medications. She is otherwise alert and oriented. She retains sensation and movement of her lower extremities. Heart auscultation reveals rhythm at a normal rate. Lungs are clear to auscultation. Her morning medications have been ordered as above. (NABILA NICKERSON MD) Diagnostic Imaging Diagonstic Imaging: CT Plain Films/CT/US/NM/MRI: other (Thoracic and lumbar spine) Comments CT thoracic and lumbar spine viewed by me and report reviewed. See report below: NAME: ROSSI DASILVA [facility] REC#: [id number] PT STATUS: REG ER : 1945 PHYSICIAN: TOMY CLAY ADMIT DATE: 10/23/21/ER Signed Date of Exam:10/23/21 CT THORACIC/LUMBAR SPINE WO PROCEDURE: CT thoracic and lumbar spine without contrast. TECHNIQUE: Multiple contiguous axial images were obtained through the thoracic and lumbar spine without the use of intravenous contrast. Sagittal and coronal reformations were then performed. All CT scans use one or more of the following dose optimizing techniques: Automated exposure control, MA and/or KvP adjustment based on a patient size and exam type, or iterative reconstruction. INDICATION: Falls resulted in spinal pain. FINDINGS: THORACIC SPINE: Thoracic statures are within normal limits. There are bridging osteophytes throughout the thoracic spine. At the T8-T9 level, the osteophyte is incomplete and there is a suggestion of some paraspinal swelling anteriorly at this level. While this disc space is not pathologically widened, anteriorly it is broader than at the remaining levels. Fracture through the disc space with traumatic disruption of an osteophyte and associated injury to the anterior longitudinal ligament could not be excluded; correlative MRI recommended as further evaluation. No appreciable cortical lucency, and the neural arches and posterior elements above and below this level appeared intact. There is no splaying of the posterior elements. Bulky osteophytes posteriorly at the T7-T8 level as a chronic finding result in severe canal stenosis. Degenerative changes throughout the thoracic spine result in no additional substantial canal encroachment. LUMBAR SPINE: There is kyphoplasty cement within a treated L2 lumbar fracture. The remaining lumbar statures are normal. Lumbar vertebral bodies, transverse processes, posterior elements, and neural arches are intact. There are degenerative changes, chronic. No acute or untreated fracture. No listhesis. IMPRESSION: 1. Disruption of the T8-T9 anterior osteophyte with equivocal widening of its disc space anteriorly and mild paraspinal swelling is suspicious for traumatic disruption of the osteophyte and horizontal soft tissue fracture plane extending into the disc which may disrupt the anterior longitudinal ligament. Correlative MRI thoracic spine recommended as further evaluation. 2. No other potential acute soft tissue or osseous spinal injury apparent with treated L2 osteoporotic compression deformity noted appearing chronic. Results phoned to the ER physician. Dictated by: Dictated on workstation # [id number] Dict: 10/23/219 Trans: 10/23/211756 [id number] Interpreted by: FELICIA WISE Electronically signed by: FELICIA WISE 10/23/211756 Diagonstic Imaging: CT Plain Films/CT/US/NM/MRI: chest Comments CT chest reviewed by me and report reviewed. See report below: NAME: ROSSI DASILVA [facility] REC#: [id number] PT STATUS: REG ER : 1945 PHYSICIAN: TOMY CLAY ADMIT DATE: 10/23/21/ER Signed Date of Exam:10/23/21 CT CHEST W PROCEDURE: CT chest with contrast only. TECHNIQUE: Multiple contiguous axial images were obtained through the chest after administration of intravenous contrast. Auto Exposure Controls were utilized during the CT exam to meet ALARA standards for radiation dose reduction. INDICATION: Injury with pain. FINDINGS: No lung contusion, pneumothorax, or hemothorax. Some mild subpleural scarring, chronic. No findings of edema or pneumonia. The aorta is atherosclerotic but nonacute. There is cardiomegaly without an overt failure pattern. No lung mass. No thoracic lymphadenopathy. No effusion or pneumothorax. No pericardial collection. There is a small hiatal hernia. Sternum, manubrium, and diaphragms are intact. No rib fracture deformity apparent. No chest wall hematoma. Visualized upper abdomen shows previous lumbar kyphoplasty. Left renal cyst. No free fluid or free air. IMPRESSION: No acute or post-traumatic chest pathology. Some chronic interstitial changes in the lungs and cardiomegaly with atherosclerotic disease. Dictated by: Dictated on workstation # [id number] Dict: 10/23/21 1733 Trans: 10/23/211756 [id number] Interpreted by: FELICIA WISE Electronically signed by: FELICIA WISE 10/23/211756 Diagonstic Imaging: CT Plain Films/CT/US/NM/MRI: c-spine, head Comments NAME: ROSSI DASILVA [facility] REC#: [id number] PT STATUS: REG ER : 1945 PHYSICIAN: TOMY CLAY ADMIT DATE: 10/23/21/ER Signed Date of Exam:10/23/21 CT HEAD/CERVICAL SPINE WO PROCEDURE: CT head and CT cervical spine without contrast. TECHNIQUE: Multiple contiguous axial images were obtained through the brain and cervical spine without the use of intravenous contrast. Sagittal and coronal reformations through the cervical spine were then performed. Auto Exposure Controls were utilized during the CT exam to meet ALARA standards for radiation dose reduction. INDICATION: Fall, head injury. FINDINGS: There are no abnormal extra-axial fluid collections. There is no intracranial hemorrhage. There is no calvarial fracture deformity and there is no hemo-sinus or pneumocephalus. There are intracranial atherosclerotic vascular calcifications. Cerebral cortical volume is unremarkable for age. The patchy periventricular white matter hypodensities while nonspecific are favored to reflect chronic small vessel disease and are not uncommonly encountered in patients of this age. There are intracranial atherosclerotic vascular calcifications. No focal or generalized cerebral edema. No sulcal effacement. No findings of elevated intracranial pressures. There was no hemorrhage. CT CERVICAL: Reconstruction views reveal normal body heights, alignment within normal limits. No cervical spinal fracture. There are advanced degenerative changes to the discs, endplates, facets, and uncovertebral joints throughout the cervical spine with diop-xy-kgoxlwnj multilevel canal stenoses throughout the ojk-fe-wrece levels as well as bony foraminal encroachments in the anl-ap-mozep cervical spine. Craniocervical relationship appeared unremarkable and the central skull base appeared intact. No cervical spinal fracture. No paravertebral hemorrhage. No traumatic deformity to the larynx given motion degradation. IMPRESSION: 1. CT head: Chronic senescent changes and likely chronic white matter small vessel disease. No hemorrhage, fracture, or acute finding. 2. CT cervical: Chronic degenerative changes without fracture or traumatic malalignment. Dictated by: Dictated on workstation # [id number] Dict: 10/23/216 Trans: 10/23/211814 [id number] Interpreted by: FELICIA WISE Electronically signed by: FELICIA WISE 10/23/211814 (NABILA NICKERSON MD) Departure Communication (PCP) Patient alert and orient x3. No neurological deficits. She is complaining of mid to right sided back pain, headache. Patient was placed in c-collar. She does have a small skin abrasion to the posterior occipital scalp. No tabatha needed. No active bleeding on arrival. Was given a tetanus shot. Currently on anticoagulant. Patient neuro exam unremarkable. CT scan of the head and cervical neck was negative for acute abnormality. C-collar removed and clear. CT scan lumbar spine negative for acute injury. CT scan of thoracic spine showed Disruption of the T8-T9 anterior osteophyte with equivocal widening of its disc space anteriorly and mild paraspinal swelling is suspicious for traumatic disruption of the osteophyte and horizontal soft tissue fracture plane extending into the disc which may disrupt the anterior longitudinal ligament. Attempted to get a MRI here but the machine is broke. Due to the trauma, mechanism of injury and concern for potential longitudinal ligament injury patie nt will need to be transferred to a facility that has neurosurgery capabilities and MRI for further evaluation. Patient is in moderate pain. Patient Was given fentanyl and morphine with some improvement. Lab work was otherwise unremarkable. Vital signs stable. Attempted to contact [facility] but they were not excepting transfers at this time. Patient was requesting [facility]. Patient was accepted to trauma by Dr. Borrego who recommends transfer for further evaluation. Awaiting transfer at this time. Patient was discussed with Dr. Yanes who agrees with transfer. (TOMY CLAY) Impression Primary Impression: Injury of thoracic spine Qualified Codes: S24.109A - Unspecified injury at unspecified level of thoracic spinal cord, initial encounter Additional Impression: Fall on stairs Qualified Codes: W10.9XXA - Fall (on) (from) unspecified stairs and steps, initial encounter Disposition: 62 DISC/XFER TO IRF Condition: Stable Transfer Transfer Reason: Exceeds level of care Time Spoke to Accepting Phy: 20:18 Transfer Progress Notes Patient accepted by Dr. Borrego Transfer Time: 20:18 Transfer Facility: [facility] Method of Transfer: EMS (TOMY CLAY) Transfer Reason: Exceeds level of care Time Spoke to Accepting Phy: 06:20 Transfer Progress Notes By the time EMS was able to transfer to [facility], no beds were available. I contacted [facility] this morning, and transfer was excepted. I spoke with Dr. Batres in neurosurgery and Dr. Tripathi from the ER. Both are agreeable. Transfer Time: 09:04 Transfer Facility: [facility] lack of bed capacity at [facility] and problems with EMS transfer capability. (NABILA NICKERSON MD) Departure-Patient Inst. Referrals: JANE RAMESH MD (PCP/Family) Primary Care Physician Copy Copies To 1: JANE RAMESH MD, ZACHARY A PA Oct 23, 2021 16:15 NABILA NICKERSON MD Oct 24, 2021 06:48
[2021-10-23] MEDS ORDERED: fentaNYL INJ 100 MCG/2 ML AMP IVP STA ×2 (16:25→18:10)
[2021-10-23 16:28] LABS: BASOPHILS # (AUTO) 0.1 10^3/uL (0.0-0.1); BASOPHILS % (AUTO) 1 % (0-10); EOSINOPHILS # (AUTO) 0.2 10^3/uL (0.0-0.3); EOSINOPHILS % (AUTO) 3 % (0-10); HEMATOCRIT 38 % (35-52); HEMOGLOBIN 12.6 g/dL (11.5-16.0); LYMPHOCYTES # (AUTO) 1.2 10^3/uL (1.0-4.0); LYMPHOCYTES % (AUTO) 16 % (12-44); MEAN CORPUSCULAR HEMOGLOBIN 33 pg (25-34); MEAN CORPUSCULAR HGB CONC 33 g/dL (32-36); MEAN CORPUSCULAR VOLUME 99 fL (80-99); MEAN PLATELET VOLUME 10.3 fL (9.0-12.2); MONOCYTES # (AUTO) 0.9 10^3/uL (0.0-1.0); MONOCYTES % (AUTO) 11 % (0-12); NEUTROPHILS # (AUTO) 5.3 10^3/uL (1.8-7.8); NEUTROPHILS % (AUTO) 69 % (42-75); PLATELET COUNT 151 10^3/uL (130-400); WHITE BLOOD COUNT 7.8 10^3/uL (4.3-11.0)
[2021-10-23] MEDS ORDERED: TETANUS,DIPTH,PERTUSS P/F (BOOSTRIX) 0.5 ML VIAL IM ONE (16:30)
[2021-10-23 16:38] LABS: ALBUMIN 3.9 GM/DL (3.2-4.5); POTASSIUM 4.7 MMOL/L (3.6-5.0)
[2021-10-23 16:39] LABS: CALCIUM 9.3 MG/DL (8.5-10.1)
[2021-10-23 16:40] LABS: TOTAL PROTEIN 7.4 GM/DL (6.4-8.2)
[2021-10-23 16:42] LABS: BILIRUBIN,TOTAL 0.5 MG/DL (0.1-1.0)
[2021-10-23 16:44] LABS: CREATININE SERUM 1.3 MG/DL (0.60-1.30)
[2021-10-23] MEDS ORDERED: NS 100 ML (IVPB) BAG IV ONE (17:00)
[2021-10-23] MEDS ORDERED: IOHEXOL 350 MG/ML 100 ML (OMNIPAQUE 350) VIAL IV ONE (17:00)
--- NOTE | 2021-10-23 17:44 | Diagnostic Imaging Report ---
PROCEDURE: CT chest with contrast only. TECHNIQUE: Multiple contiguous axial images were obtained through the chest after administration of intravenous contrast. Auto Exposure Controls were utilized during the CT exam to meet ALARA standards for radiation dose reduction. INDICATION: Injury with pain. FINDINGS: No lung contusion, pneumothorax, or hemothorax. Some mild subpleural scarring, chronic. No findings of edema or pneumonia. The aorta is atherosclerotic but nonacute. There is cardiomegaly without an overt failure pattern. No lung mass. No thoracic lymphadenopathy. No effusion or pneumothorax. No pericardial collection. There is a small hiatal hernia. Sternum, manubrium, and diaphragms are intact. No rib fracture deformity apparent. No chest wall hematoma. Visualized upper abdomen shows previous lumbar kyphoplasty. Left renal cyst. No free fluid or free air. IMPRESSION: No acute or post-traumatic chest pathology. Some chronic interstitial changes in the lungs and cardiomegaly with atherosclerotic disease. Dictated by: Dictated on workstation # [id number]
--- NOTE | 2021-10-23 17:57 | Diagnostic Imaging Report ---
PROCEDURE: CT thoracic and lumbar spine without contrast. TECHNIQUE: Multiple contiguous axial images were obtained through the thoracic and lumbar spine without the use of intravenous contrast. Sagittal and coronal reformations were then performed. All CT scans use one or more of the following dose optimizing techniques: Automated exposure control, MA and/or KvP adjustment based on a patient size and exam type, or iterative reconstruction. INDICATION: Falls resulted in spinal pain. FINDINGS: THORACIC SPINE: Thoracic statures are within normal limits. There are bridging osteophytes throughout the thoracic spine. At the T8-T9 level, the osteophyte is incomplete and there is a suggestion of some paraspinal swelling anteriorly at this level. While this disc space is not pathologically widened, anteriorly it is broader than at the remaining levels. Fracture through the disc space with traumatic disruption of an osteophyte and associated injury to the anterior longitudinal ligament could not be excluded; correlative MRI recommended as further evaluation. No appreciable cortical lucency, and the neural arches and posterior elements above and below this level appeared intact. There is no splaying of the posterior elements. Bulky osteophytes posteriorly at the T7-T8 level as a chronic finding result in severe canal stenosis. Degenerative changes throughout the thoracic spine result in no additional substantial canal encroachment. LUMBAR SPINE: There is kyphoplasty cement within a treated L2 lumbar fracture. The remaining lumbar statures are normal. Lumbar vertebral bodies, transverse processes, posterior elements, and neural arches are intact. There are degenerative changes, chronic. No acute or untreated fracture. No listhesis. IMPRESSION: 1. Disruption of the T8-T9 anterior osteophyte with equivocal widening of its disc space anteriorly and mild paraspinal swelling is suspicious for traumatic disruption of the osteophyte and horizontal soft tissue fracture plane extending into the disc which may disrupt the anterior longitudinal ligament. Correlative MRI thoracic spine recommended as further evaluation. 2. No other potential acute soft tissue or osseous spinal injury apparent with treated L2 osteoporotic compression deformity noted appearing chronic. Results phoned to the ER physician. Dictated by: Dictated on workstation # [id number]
--- NOTE | 2021-10-23 17:58 | Diagnostic Imaging Report ---
PROCEDURE: CT head and CT cervical spine without contrast. TECHNIQUE: Multiple contiguous axial images were obtained through the brain and cervical spine without the use of intravenous contrast. Sagittal and coronal reformations through the cervical spine were then performed. Auto Exposure Controls were utilized during the CT exam to meet ALARA standards for radiation dose reduction. INDICATION: Fall, head injury. FINDINGS: There are no abnormal extra-axial fluid collections. There is no intracranial hemorrhage. There is no calvarial fracture deformity and there is no hemo-sinus or pneumocephalus. There are intracranial atherosclerotic vascular calcifications. Cerebral cortical volume is unremarkable for age. The patchy periventricular white matter hypodensities while nonspecific are favored to reflect chronic small vessel disease and are not uncommonly encountered in patients of this age. There are intracranial atherosclerotic vascular calcifications. No focal or generalized cerebral edema. No sulcal effacement. No findings of elevated intracranial pressures. There was no hemorrhage. CT CERVICAL: Reconstruction views reveal normal body heights, alignment within normal limits. No cervical spinal fracture. There are advanced degenerative changes to the discs, endplates, facets, and uncovertebral joints throughout the cervical spine with [id number] multilevel canal stenoses throughout the [id number]-[id number] levels as well as bony foraminal encroachments in the [id number] cervical spine. Craniocervical relationship appeared unremarkable and the central skull base appeared intact. No cervical spinal fracture. No paravertebral hemorrhage. No traumatic deformity to the larynx given motion degradation. IMPRESSION: 1. CT head: Chronic senescent changes and likely chronic white matter small vessel disease. No hemorrhage, fracture, or acute finding. 2. CT cervical: Chronic degenerative changes without fracture or traumatic malalignment. Dictated by: Dictated on workstation # [id number]
[2021-10-23] MEDS ORDERED: morphine INJ 10 MG/ML 1ML (SYR OR VIAL) IVP STA ×2 (19:32→21:05)
[2021-10-23 20:01] LABS: INR 1.2 (0.8-1.4); PROTHROMBIN TIME PATIENT 15.8 SEC (12.2-14.7)
[2021-10-23] MEDS ORDERED: ONDANSETRON 4 MG/2 ML (SDV) Z0FRAN IVP ONE (21:15)
[2021-10-24] MEDS ORDERED: morphine INJ 4 MG/ML 1 ML (VIAL/SYRINGE) IVP ONE (00:30)
[2021-10-24] MEDS ORDERED: morphine INJ 10 MG/ML 1ML (SYR OR VIAL) ONE (00:36)
[2021-10-24] MEDS ORDERED: morphine INJ 10 MG/ML 1ML (SYR OR VIAL) IVP STA ×2 (06:09→08:36)
[2021-10-24] MEDS ORDERED: ORPHENADRINE 60 MG/2 ML (NORFLEX) AMP (ED ONLY) IV ONE (06:45)
[2021-10-24] MEDS ORDERED: DIGOXIN 0.125 MG (LANOXIN) TAB PO ONE (06:45)
[2021-10-24] MEDS ORDERED: LACTATED RINGERS 1,000 ML IV ONE (06:45)
[2021-10-24 09:04] VITALS: BP 112/58
== END 2021-10-24 09:04 | disposition short-term general hospital (02) ==
LOC: EDUNIT# 16:02 → ER 16:04
DX: S24.109A Unspecified injury at unspecified level of thoracic spinal cord, initial encounter (principal); S01.01XA Laceration without foreign body of scalp, initial encounter; Z23 Encounter for immunization; W10.9XXA Fall (on) (from) unspecified stairs and steps, initial encounter; X50.1XXA Overexertion from prolonged static or awkward postures, initial encounter; Y93.01 Activity, walking, marching and hiking; Y92.22 Religious institution as the place of occurrence of the external cause
CPT/HCPCS: 36415; 51702; 70450; 71260; 72125; 72128; 72131; 80053; 82947; 85025; 85610; 85730; 90471; 90715; 96361; 96374; 96375; 96376

== ENCOUNTER → 2021-12-12 | Outpatient (CLI) | payer MEDICARE ==
[~2021-12-12] MED LIST changes: +POTA-177 PO; -POTA10TA37 PO
--- NOTE | 2021-12-12 08:54 | Diagnostic Imaging Report ---
PROCEDURE: CT head without contrast. TECHNIQUE: Multiple contiguous axial images were obtained through the brain without the use of intravenous contrast. Auto Exposure Controls were utilized during the CT exam to meet ALARA standards for radiation dose reduction. INDICATION: Fall and dizziness. Compared with a CT head 10/23/2021. Patchy subcortical and periventricular white matter disease unchanged in appearance from prior and most likely chronic small vessel sequelae. No new site of abnormal parenchymal attenuation. There is no hemorrhage and there are no abnormal extra-axial fluid collections. There is no hydrocephalus. There are substantial chronic intracranial atherosclerotic vascular calcifications. Orbits, sinuses and calvarium all appeared nonacute. IMPRESSION: No hemorrhage or fracture. Patchy white matter disease stable likely small vessel sequelae in the setting of atherosclerotic vascular calcifications. Dictated by: Dictated on workstation # [id number]
== END ==
LOC: RAD 08:01
PROVIDERS: ATTEND Family Medicine
DX: R42 Dizziness and giddiness (principal); R90.82 White matter disease, unspecified; W19.XXXA Unspecified fall, initial encounter
CPT/HCPCS: 70450

== ENCOUNTER 2022-03-25 09:56 | Outpatient (RCR) | payer MEDICARE | END 2022-04-04 | disposition home or self-care (01) | LOC: CR 09:56 | PROVIDERS: ATTEND Thoracic Surgery (Cardiothoracic Vascular Surgery) | DX: Z29.8 Encounter for other specified prophylactic measures (principal); I36.1 Nonrheumatic tricuspid (valve) insufficiency | CPT/HCPCS: 93798 ==

== ENCOUNTER 2022-05-01 10:08 | Outpatient (RCR) | payer MEDICARE | END 2022-05-05 | disposition home or self-care (01) | LOC: CR 10:08 | PROVIDERS: ATTEND Thoracic Surgery (Cardiothoracic Vascular Surgery) | DX: Z29.8 Encounter for other specified prophylactic measures (principal); I36.1 Nonrheumatic tricuspid (valve) insufficiency | CPT/HCPCS: 93798 ==

== ENCOUNTER 2022-06-01 09:05 | Outpatient (RCR) | payer MEDICARE | END 2022-06-02 | disposition home or self-care (01) | LOC: CR 09:05 | PROVIDERS: ATTEND Thoracic Surgery (Cardiothoracic Vascular Surgery) | DX: Z29.8 Encounter for other specified prophylactic measures (principal); I36.1 Nonrheumatic tricuspid (valve) insufficiency | CPT/HCPCS: 93798 ==

== ENCOUNTER → 2022-07-03 | Outpatient (RCR) | payer MEDICARE | END | disposition home or self-care (01) | LOC: CR 06-03 10:23 | PROVIDERS: ATTEND Thoracic Surgery (Cardiothoracic Vascular Surgery) | DX: Z29.8 Encounter for other specified prophylactic measures (principal); I36.1 Nonrheumatic tricuspid (valve) insufficiency | CPT/HCPCS: 93798 ==

== ENCOUNTER 2022-07-06 09:32 | Outpatient (RCR) | payer MEDICARE | END 2022-08-02 | disposition home or self-care (01) | LOC: CR 09:32 | PROVIDERS: ATTEND Thoracic Surgery (Cardiothoracic Vascular Surgery) | DX: Z29.8 Encounter for other specified prophylactic measures (principal); I36.1 Nonrheumatic tricuspid (valve) insufficiency | CPT/HCPCS: 93798 ==